=== PATIENT | female | born 1990 | race Caucasian/White ===

== ENCOUNTER 2017-12-07 18:04 | Emergency (ER) | payer MEDICAID, OTHER ==
[~2017-12-07] VITALS: Ht 160 cm; Wt 94.1 kg
[~2017-12-07 18:04] MED LIST: IBUP800T23 PO; ROBA750T3 PO; Z.0.BCPILL PO
[2017-12-07 18:08] VITALS: BP 183/85; PULSE 100; RESP 16; TEMP 98.5; O2SAT 98
[2017-12-07 18:50] VITALS: BP 142/92; PULSE 104; RESP 18; O2SAT 98
--- NOTE | 2017-12-07 18:51 | PD ---
HPI Chief Complaint: Hypertension Time Seen by Provider: 18:31 Travel History International Travel<30 days: No Contact w/Intl Traveler<30days: No Traveled to known affect area: No History of Present Illness HPI Patient is a 27-year-old female who was sent to the emergency room by her primary care doctor for evaluation of hypertension. Patient reports that today was the first day meeting her new physician as her prior primary care doctor retired. Reports that she had blood work obtained in July which showed an elevated blood glucose as well as elevated cholesterol. Reports that primary care doctor was concerned as her initial blood pressure was 180/120. Reports that the repeat of the blood pressure multiple times and last blood pressure was 200/120. Patient's primary care doctor is Dr. Daxa Villeda. Patient was instructed to go directly to the emergency room for evaluation of hypertension. Patient reports that she has no history of hypertension, hyperlipidemia or diabetes. Patient this time with no complaints, denies any headaches, denies any vision changes, denies any nausea or vomiting. Patient reports that she feels perfectly fine and has no complaints at this time. Reports that she did go to her primary care doctor's office to meet her physician as well as be treated for a yeast infection. [facility] Past Medical History Medical History: Denies Significant Hx Diminished Hearing: No ?: Not Past Surgical History Tonsillectomy: Yes (1994) Social History Alcohol Use: No Tobacco Use: No Substance Use: No Allergies-Medications (Allergen,Severity, Reaction): Coded Allergies: No Known Allergies (Verified Adverse Reaction, Unknown, 12/07/17) Reported Meds & Prescriptions Reported Meds & Active Scripts Active Reported [ control pill] 1 Tab PO DAILY Review of Systems General / Constitutional: No: Fever Eyes: No: Visual changes HENT: No: Headaches, Vertigo, Lightheadedness Cardiovascular: No: Chest Pain or Discomfort Respiratory: No: Shortness of Breath Gastrointestinal: No: Abdominal Pain Genitourinary: No: Dysuria Musculoskeletal: No: Pain Skin: No Rash Neurologic: No: Weakness, Dizziness, Syncope, Headache Psychiatric: No: Depression Endocrine: No: Polydipsia Hematologic/Lymphatic: No: Easy Bruising Physical Exam Narrative GENERAL: NAD SKIN: Focused skin assessment warm/dry. HEAD: Atraumatic. Normocephalic. EYES: Pupils equal and round. No scleral icterus. No injection or drainage. ENT: No nasal bleeding or discharge. Mucous membranes pink and moist. NECK: Trachea midline. No JVD. CARDIOVASCULAR: Regular rate and rhythm. No murmur appreciated. RESPIRATORY: No accessory muscle use. Clear to auscultation. Breath sounds equal bilaterally. GASTROINTESTINAL: Abdomen soft, non-tender, nondistended. Hepatic and splenic margins not palpable. MUSCULOSKELETAL: No obvious deformities. No clubbing. No cyanosis. No edema. NEUROLOGICAL: Awake and alert. No obvious cranial nerve deficits. Motor grossly within normal limits. Normal speech. PSYCHIATRIC: Appropriate mood and affect; insight and judgment normal. Data Data Last Documented VS Vital Signs Date Time Temp Pulse Resp B/P (MAP) Pulse Ox O2 Delivery O2 Flow Rate FiO2 12/07/17 19:08 148/93 (111) 12/07/17 18:50 104 18 98 Room Air 12/07/17 18:08 98.5 Orders Orders Electrocardiogram (12/07/17 18:44) Basic Metabolic Panel (Bmp) (12/07/17 18:44) Complete Blood Count With Diff (12/07/17 18:44) Ecg Monitoring (12/07/17 18:44) Labs Laboratory Tests Test 12/07/17 19:05 White Blood Count 7.7 TH/MM3 Red Blood Count 5.47 MIL/MM3 Hemoglobin 14.4 GM/DL Hematocrit 44.4 % Mean Corpuscular Volume 81.2 FL Mean Corpuscular Hemoglobin 26.3 PG Mean Corpuscular Hemoglobin Concent 32.4 % Red Cell Distribution Width 12.9 % Platelet Count 292 TH/MM3 Mean Platelet Volume 8.8 FL Neutrophils (%) (Auto) 60.9 % Lymphocytes (%) (Auto) 30.3 % Monocytes (%) (Auto) 6.4 % Eosinophils (%) (Auto) 1.8 % Basophils (%) (Auto) 0.6 % Neutrophils # (Auto) 4.8 TH/MM3 Lymphocytes # (Auto) 2.3 TH/MM3 Monocytes # (Auto) 0.5 TH/MM3 Eosinophils # (Auto) 0.1 TH/MM3 Basophils # (Auto) 0.0 TH/MM3 CBC Comment DIFF FINAL Differential Comment Blood Urea Nitrogen 7 MG/DL Creatinine 0.56 MG/DL Random Glucose 231 MG/DL Calcium Level 9.0 MG/DL Sodium Level 134 MEQ/L Potassium Level 3.7 MEQ/L Chloride Level 101 MEQ/L Carbon Dioxide Level 22.6 MEQ/L Anion Gap 10 MEQ/L Estimat Glomerular Filtration Rate 128 ML/MIN MDM Medical Decision Making Medical Screen Exam Complete: Yes Emergency Medical Condition: Yes Medical Record Reviewed: Yes Interpretation(s) Vital Signs Date Time Temp Pulse Resp B/P (MAP) Pulse Ox O2 Delivery O2 Flow Rate FiO2 12/07/17 18:08 98.5 100 16 183/85 (117) 98 Differential Diagnosis htn, new onset diabetes Narrative Course 27-year-old female for evaluation of hypertension. Patient's initial blood pressure here was 185/85. Patient with no history of hypertension, no medical problems. Patient currently with no medical complaints at this time. Patient's repeat blood pressure well in the room was 140/85. Patient asymptomatic with no complaints. Plan to obtain basic blood work as well as ekg , will monitor patient. EKG at 1907: NSR at 93bpm, qt/qtc: 334/384, no acute changes CBC & BMP Diagram 12/07/17 19:05 Calcium Level 9.0 Blood sugar is elevated to 31, this is not a fasting blood sugar. I did reviewed all labs with patient and her parents. BP remains 148/93. Patient completely asymptomatic, patient will follow up with her primary care doctor and will return to the emergency room as needed. Diagnosis Primary Impression: Hypertension Qualified Codes: I10 - Essential (primary) hypertension Additional Impression: Hyperglycemia Patient Instructions: Moderate Sedation (ED) Additional Instructions: Please provide patient with a copy of their lab work at discharge Please follow up with your primary care doctor in 2-3 days Return to the ER if symptoms worsen or progress Return to the ER as needed Please have your blood pressure rechecked by your primary care doctor Disposition: 01 DISCHARGE HOME Condition: Stable Camille Peguero DO Dec 07, 2017 18:51
[2017-12-07] MEDS ORDERED: birth control pill PO (19:00)
[2017-12-07 19:08] VITALS: BP 148/93
[2017-12-07 19:12] LABS: AUTOMATED NEUTROPHIL # 4.8 TH/MM3 (1.8-7.7); BASOPHIL % 0.6 % (0.0-2.0); EOSINOPHIL # 0.1 TH/MM3 (0-0.4); EOSINOPHIL % 1.8 % (0.0-4.0); HEMATOCRIT 44.4 % (35.0-46.0); HEMOGLOBIN 14.4 GM/DL (11.6-15.3); LYMPH % 30.3 % (9.0-44.0); LYMPHOCYTE # 2.3 TH/MM3 (1.0-4.8); MEAN CELL VOLUME 81.2 FL (80.0-100.0); MEAN CORPUSCULAR HEMOGLOBIN 26.3 PG (27.0-34.0); MEAN CORPUSCULAR HGB CONC 32.4 % (32.0-36.0); MEAN PLATELET VOLUME 8.8 FL (7.0-11.0); MONO % 6.4 % (0.0-8.0); MONOCYTE # 0.5 TH/MM3 (0-0.9); NEUT % 60.9 % (16.0-70.0); PLATELET COUNT 292 TH/MM3 (150-450); RED BLOOD COUNT 5.47 MIL/MM3 (4.00-5.30); RED CELL DISTRIBUTION WIDTH 12.9 % (11.6-17.2); WHITE BLOOD COUNT 7.7 TH/MM3 (4.0-11.0)
[2017-12-07 19:25] LABS: BICARBONATE 22.6 MEQ/L (21.0-32.0)
[2017-12-07 19:28] LABS: CREATININE 0.56 MG/DL (0.50-1.00)
[2017-12-07 20:05] VITALS: BP 140/85; PULSE 93; RESP 18; O2SAT 98
--- NOTE | 2017-12-09 09:11 | EKG ---
Date Performed: 12/07/2017 Time Performed: 19:07:35 PTAGE: 27 years EKG: Sinus rhythm MODERATE VOLTAGE CRITERIA FOR LVH, CONSIDER NORMAL VARIANT BORDERLINE ECG PREVIOUS TRACING : 01/05/2009 15.16 DOCTOR: Ale Lovelace Interpretating Date/Time 12/09/2017 09:09:13
== END 2017-12-07 20:10 | disposition home or self-care (01) ==
LOC: PHED 18:04
DX: I10 Essential (primary) hypertension (principal); R73.9 Hyperglycemia, unspecified; R94.31 Abnormal electrocardiogram [ECG] [EKG]
CPT/HCPCS: 80048; 85025; 93005; 99284